=== PATIENT | male | born 1950 | race Caucasian/White ===

== ENCOUNTER → 2019-08-05 | Outpatient (CLI) | payer OTHER, BC ==
[~2019-08-05] MED LIST: ASPIR 8181 MG PO; ATORVASTATIN CA40 MG PO; BYSTOLIC 5 MG5 M1 PO; GLUCOSAMINE CH1 EAC7 PO
== END ==
LOC: SJCVC 14:55
DX: R94.31 Abnormal electrocardiogram [ECG] [EKG] (principal); I44.1 Atrioventricular block, second degree; I25.10 Atherosclerotic heart disease of native coronary artery without angina pectoris; E78.00 Pure hypercholesterolemia, unspecified; I65.23 Occlusion and stenosis of bilateral carotid arteries; Z95.1 Presence of aortocoronary bypass graft; Z79.899 Other long term (current) drug therapy; Z87.891 Personal history of nicotine dependence

== ENCOUNTER → 2020-02-05 | Outpatient (CLI) | payer OTHER, BC | LOC: SJCVCIMAG 09:30 | PROVIDERS: ATTEND Internal Medicine Cardiovascular Disease | DX: I25.10 Atherosclerotic heart disease of native coronary artery without angina pectoris (principal); I44.1 Atrioventricular block, second degree; Z95.1 Presence of aortocoronary bypass graft; Z87.891 Personal history of nicotine dependence ==

== ENCOUNTER → 2020-11-18 | Outpatient (CLI) | payer OTHER, BC ==
[~2020-11-18] MED LIST changes: +FISH OIL 1,0001 EAC9 PO; +MELATONIN5 MG PO; +NAPROSYN500 M1 PO; +VITAMIN D3-ALO1 EACH PO
== END ==
LOC: SJCVCIMAG 11:26 → SJCVC 11:26
PROVIDERS: ATTEND Internal Medicine Cardiovascular Disease
DX: I08.3 Combined rheumatic disorders of mitral, aortic and tricuspid valves (principal); R00.1 Bradycardia, unspecified; I44.2 Atrioventricular block, complete; I25.10 Atherosclerotic heart disease of native coronary artery without angina pectoris; E78.00 Pure hypercholesterolemia, unspecified; I65.23 Occlusion and stenosis of bilateral carotid arteries; E78.5 Hyperlipidemia, unspecified; Z95.1 Presence of aortocoronary bypass graft; Z79.82 Long term (current) use of aspirin; Z79.899 Other long term (current) drug therapy; Z72.89 Other problems related to lifestyle; Z87.891 Personal history of nicotine dependence

== ENCOUNTER 2020-11-19 07:22 | Observation (INO) | payer OTHER, BC ==
[~2020-11-19] VITALS: Ht 170.2 cm; Wt 91.6 kg
[2020-11-19] VITALS (8 sets, daily range): BP systolic 110–156; BP diastolic 63–77
--- NOTE | ~2020-11-19 | P ---
[facility] [place] [address] PROCEDURE REPORT Name: SHERIN EVERETT Room #: 210-P [facility]..#: [id number] Admission: 11/19/20 Attend Phys: Asher Avina MD Discharge: Date of : 50 Report #: [id number] THIS REPORT FOR: cc: Jose Giles,Asher Ayon MD ~ DOC #: [id number] Asher Avina MD DATE OF SERVICE: 11/19/2020 PREOPERATIVE DIAGNOSIS: Complete heart block. POSTOPERATIVE DIAGNOSIS: Complete heart block. PROCEDURE PERFORMED: Dual chamber pacemaker implantation. HISTORY: The patient is a 70-year-old with a history of known conduction disease, who now has symptomatic third-degree heart block, here for dual chamber pacemaker implantation. ANESTHESIA: The patient underwent MAC anesthesia with no anesthesia related complications. DESCRIPTION OF PROCEDURE: The patient underwent informed consent. We discussed the details of the procedure including the risks and he is amenable to proceed. The patient was brought to the EP laboratory in fasting and sedated state, prepped and draped in a sterile fashion. He was premedicated for his contrast allergy, received IV antibiotics, underwent a venogram showing patency of left axillary vein. Lidocaine was injected and incision was made. Pocket created over the prepectoral fascia. Access was obtained twice to left axillary vein. Sheaths were positioned using the modified Seldinger technique and leads were positioned in the right atrium and right ventricle with adequate pacing and sensing thresholds. The leads were sutured to prepectoral fascia using Ethibond suture. Pocket was irrigated with vancomycin. Device connected, tug test performed. Pocket closed in two layers using 2-0 for the deep layer, 3-0 for the middle layer. Surgical glue was placed to outer skin layer. The patient awoke neurologically and hemodynamically intact. No complications. No significant bleeding. The implanted pacemaker was a [employer] device, generator was a model number W3DR01, serial number [id number], atrial lead was a 5076, serial number [id number]. Ventricular lead was a 5076, 58 cm, serial number [id number], atrial lead demonstrated a P-wave of 1.9 millivolts, pacing impedance 692 ohms, pacing threshold 0.7 volts at 0.5 milliseconds. Ventricular lead demonstrated an R-wave of 5.7 millivolts, pacing impedance 644 ohms, pacing threshold 0.5 volts at 0.5 milliseconds. The device was programmed to DDDR 60-[address] [id number] PROCEDURE REPORT Name: KARLOSSHERIN Craven Room #: 210-P [facility]..#: [id number] Admission: 11/19/20 Attend Phys: Asher Avina MD Discharge: Date of : 50 Report #: [id number] CONCLUSION: Successful dual chamber pacemaker implantation. JavonMD ILYA Weinstein/YULIET By: [id number] Asher Avina MD /nt
[~2020-11-19 07:22] MED LIST changes: -FISH OIL 1,0001 EAC9 PO; -MELATONIN5 MG PO; -NAPROSYN500 M1 PO; -VITAMIN D3-ALO1 EACH PO
[2020-11-19] MEDS ORDERED: FISH OIL 1,0001 EAC9 PO ×2 (08:27)
[2020-11-19] MEDS ORDERED: VITAMIN D3-ALO1 EACH PO ×2 (08:27)
[2020-11-19] MEDS ORDERED: NAPROSYN500 M1 PO ×2 (08:28)
[2020-11-19] MEDS ORDERED: MELATONIN5 MG PO ×2 (08:28)
[2020-11-19 08:39] LABS: ABSOLUTE NEUTROPHILS 3.6 thou/uL (1.4-8.2); BASOPHILS 0.8 % (0.0-2.0); EOSINOPHILS 1.6 % (0.0-3.0); HEMATOCRIT 45.5 % (42.0-52.0); HEMOGLOBIN 14.9 gm/dL (14.0-18.0); MCH 29.8 pg (26.0-34.0); MCHC 32.7 g/dL (28.0-37.0); MCV 91.1 fL (80.0-100.0); MONOCYTES 11.1 % (1.0-8.0); PLATELET COUNT 203 thou/uL (150-400); POLYS 62.5 % (36.0-66.0); RBC 4.99 mil/uL (4.50-6.00); RDW 14.4 % (10.5-14.5); WBC 5.7 thou/uL (4.0-11.0)
[2020-11-19 08:44] LABS: CALCIUM 9.3 mg/dL (8.5-10.1); CREATININE 0.9 mg/dL (0.7-1.3); POTASSIUM 4.2 mmol/L (3.5-5.1)
[2020-11-19 08:50] LABS: ALBUMIN 4.1 g/dL (3.4-5.0); TOTAL BILIRUBIN 1.5 mg/dL (0.2-1.0)
[2020-11-19 08:52] LABS: APTT 26.9 Seconds (24.5-32.8); INR 1.06; PROTIME 11.5 Seconds (10.5-12.1)
--- NOTE | 2020-11-19 19:24 | NUR ---
pt arrived to unit post pacemeker placement. alert o x4 denies pain left upper pacemaker incision site CDI. Family at bedside. Pt and family oriented to room and POC. pt anticipating discharge in am.
[2020-11-20] VITALS: BP 111/60
--- NOTE | 2020-11-20 03:55 | NUR ---
SLEPT MOST OF SHIFT. DENIES COMPLAINTS OF CHEST PAIN OR SHORTNESS OF BREATH. WORKING ON GOALS AND PLAN OF CARE FOR NOC. UP IN ROOM WITH LEFT ARM IN IMMOBILIZOR. CONTINUE TO ASSES CLOSELY.
[2020-11-20 05:00] VITALS: BP 137/80
[2020-11-20 08:00] VITALS: BP 142/79
[2020-11-20 10:00] VITALS: BP 142/79
== END 2020-11-20 10:39 | disposition home or self-care (01) ==
LOC: CATH 07:22 → 2N 16:03
PROVIDERS: ADMIT Internal Medicine Cardiovascular Disease; ATTEND Internal Medicine Cardiovascular Disease
DX: I44.2 Atrioventricular block, complete (principal); I48.0 Paroxysmal atrial fibrillation; I25.10 Atherosclerotic heart disease of native coronary artery without angina pectoris; I65.29 Occlusion and stenosis of unspecified carotid artery; Z79.82 Long term (current) use of aspirin; Z79.899 Other long term (current) drug therapy; Z95.1 Presence of aortocoronary bypass graft
CPT/HCPCS: 62110; 62900; 70005

== ENCOUNTER → 2021-02-08 | Outpatient (CLI) | payer OTHER, BC ==
[~2021-02-08] MED LIST changes: +FISH OIL 1,0001 EAC9 PO; +MELATONIN5 MG PO; +NAPROSYN500 M1 PO; +VITAMIN D3-ALO1 EACH PO
== END ==
LOC: SJCVC 17:06
PROVIDERS: ATTEND Internal Medicine Cardiovascular Disease
DX: I44.2 Atrioventricular block, complete (principal); I25.10 Atherosclerotic heart disease of native coronary artery without angina pectoris; I48.91 Unspecified atrial fibrillation; Z95.0 Presence of cardiac pacemaker; Z88.8 Allergy status to other drugs, medicaments and biological substances; Z79.82 Long term (current) use of aspirin; Z79.899 Other long term (current) drug therapy; Z87.891 Personal history of nicotine dependence; Z72.89 Other problems related to lifestyle

== ENCOUNTER → 2021-02-22 | Outpatient (CLI) | payer OTHER, BC | LOC: SJCVC 10:58 | PROVIDERS: ATTEND Internal Medicine Cardiovascular Disease | DX: R94.31 Abnormal electrocardiogram [ECG] [EKG] (principal); I45.4 Nonspecific intraventricular block; I25.10 Atherosclerotic heart disease of native coronary artery without angina pectoris; E78.00 Pure hypercholesterolemia, unspecified; Z95.1 Presence of aortocoronary bypass graft; Z79.82 Long term (current) use of aspirin; Z79.899 Other long term (current) drug therapy; Z87.891 Personal history of nicotine dependence ==